=== PATIENT | female | born 1975 | race Caucasian/White ===

== ENCOUNTER 2016-07-27 16:42 | Emergency (ER) | payer OTHER ==
[~2016-07-27] VITALS: Wt 68.0 kg
[~2016-07-27 16:42] MED LIST: CYCL-319 PO; HYDR-3498 PO; IBUP-1542 PO
[2016-07-27] MEDS ORDERED: KETOROLAC 60 MG INJ IM STA (18:10)
[2016-07-27] MEDS ORDERED: CYCL-319 PO (19:00)
[2016-07-27] MEDS ORDERED: NAPR-260 PO (19:00)
[2016-07-27 19:05] VITALS: BP 128/60; PULSE 68; RESP 20; TEMP 98.2
--- NOTE | 2016-07-27 19:12 | ERD ---
ER Documentation Chief Complaint Date/Time DATE: 07/27/16 TIME: 19:08 Chief Complaint lower back pain non traumatic,not better with otc meds. HPI This is a 41-year-old female presenting to the emergency department complaining of lumbar back pain for the past 3 years. Patient states the pain has come and goes, she rates the pain moderate in severity worsening with movement. Patient states that she has been evaluated by numerous doctors and ERs and she has been doing physical therapy for the past year. Patient states that the pain has started again today she rates the pain moderate in severity, patient states that she was diagnosed with a vertebral fracture at this hospital 6 months ago and she wants another CT of the spine. Patient has taken ibuprofen earlier today. She denies any saddle anesthesia, bladder or bowel incontinence ROS All systems reviewed and are negative except as per history of present illness. Medications Home Meds Active Scripts Naproxen* (Naprosyn*) 500 Mg Tablet, 500 MG PO BID Y for PAIN AND/OR INFLAMMATION, #30 TAB Prov:LIZBETH DUNCAN PA-C 07/27/16 Cyclobenzaprine Hcl* (Cyclobenzaprine Hcl*) 10 Mg Tablet, 10 MG PO TID, #15 TAB Prov:LIZBETH DUNCAN PA-C 07/27/16 Cyclobenzaprine Hcl* (Cyclobenzaprine Hcl*) 10 Mg Tablet, 10 MG PO TID, #15 TAB Prov:MARYANN CARD NP 01/13/16 Hydrocodone Bit-Acetaminophen* ([place]*) 5-325 Mg Tab, 1 TAB PO Q6 Y for PAIN, # 20 TAB Prov:MARYANN CARD NP 01/13/16 Ibuprofen* (Motrin*) 600 Mg Tab, 600 MG PO Q6H Y for PAIN AND OR ELEVATED TEMP, #30 TAB Prov:MARYANN CARD NP 01/13/16 Reported Medications Ibuprofen* (Motrin*) Unknown Strength Tab, PO Q6H Y for PAIN AND OR ELEVATED TEMP, #30 TAB 01/12/16 Allergies Allergies: Coded Allergies: No Known Allergy (Unverified , 01/12/16) PMhx/Soc Medical and Surgical Hx: pt denies Medical Hx, pt denies Surgical Hx History of Surgery: No Anesthesia Reaction: No Hx Neurological Disorder: No Hx Respiratory Disorders: No Hx Cardiac Disorders: No Hx Psychiatric Problems: No Hx Miscellaneous Medical Probl: No Hx Alcohol Use: No Hx Substance Use: No Hx Tobacco Use: No Smoking Status: Never smoker Physical Exam Vitals Vital Signs Date Time Temp Pulse Resp B/P Pulse Ox O2 Delivery O2 Flow Rate FiO2 07/27/16 16:47 98.8 77 21 133/61 99 Physical Exam GENERAL: WD/WN, in no apparent distress, non-toxic appearing HENT: NC/AT EYES: Conjunctiva normal NECK: Supple PULM: Normal labored breathing CV: Good capillary refill GI: Non-distended, no guarding BACK: no deformities noted, normal spinal curvature, TTP on lumbar region bilaterally, non-tender on spine midline, EXT: No clubbing, cyanosis, or edema NEURO: Moves on all fours, sensation intact, normal gait SKIN: intact PSYCH: Normal mood Results 24 hrs Current Medications Medications (Trade) Dose Ordered Sig/Namita Route PRN Reason Start Time Stop Time Status Last Admin Dose Admin Ketorolac Tromethamine (Toradol) 60 mg ONCE STAT IM 07/27/16 18:10 07/27/16 18:11 DC 07/27/16 18:40 Procedures/MDM This is a 41-year-old female presenting to the emergency department complaining of lumbar back pain for the past 3 years. Patient presents asking for another CT of the back, she denies any changes in the past year. On examination patient was tender to palpation in the lumbar region, she was nontender to palpate her spine midline. She appears well, stable vital signs and ambulating throughout the halls. I discussed with patient that another CT at this time is more harmful, the risks outweigh the benefits. I reviewed patient's past chart , her CT of the lumbar spine that was done in January the radiologist stated: 1. No fracture or subluxation of the lumbar spine. 2. Mild spinal canal stenosis and minimal bilateral neural foraminal narrowing at L4-L5 secondary to disk bulging. I have discussed this with the patient and she was unaware of her findings from this last visit. Patient states that she has been jumping around different ERs , I have given her lengthy discussion that she is suitable to follow-up with her primary care physician to get a referral to see orthopedist. Patient may need continuous physical therapy or an MRI from her orthopedist. In the ED patient was given Toradol IM. A prescription for naproxen and Flexeril was provided. I discussed return to the ER for any worsening signs or symptoms. Patient understands and agrees with this plan. She is neurovascular intact for discharge. Low suspicion for cauda equina or vertebral fracture at this time Departure Diagnosis: Primary Impression: Bulging disc Additional Impression: Spinal stenosis Spinal region: unspecified Qualified Code: M48.00 - Spinal stenosis, unspecified spinal region Condition: Fair Patient Instructions: Relieving Back Pain, Self-Care for Low Back Pain, Types of Lumbar Disk Surgery, Common Spine and Disk Problems, Back Pain (Acute Or Chronic) Referrals: DOCTOR,NOT ON STAFF (PCP) Additional Instructions: Visite a [place] karly melendez para un EXAMEN.Regrese a estas instalaciones si no se mejora lacey esperbamos o lacey le dijimos. Regrese a estas instalaciones si no se mejora lacey esperbamos o lacey le dijimos. [place] toda la medicina mehdi y lacey se le indic. LIZBETH DUNCAN PA-C Jul 27, 2016 19:12
== END 2016-07-27 19:05 | disposition home or self-care (01) ==
LOC: FTE 16:42
DX: M51.36 Other intervertebral disc degeneration, lumbar region (principal); M48.06 Spinal stenosis, lumbar region
CPT/HCPCS: 96372; J1885; Z7502